=== PATIENT | female | born 1965 | race Caucasian/White ===

== ENCOUNTER → 2016-05-26 | Outpatient (CLI) | payer BC | LOC: RAD 15:55 | DX: M54.5 Low back pain (principal); M51.36 Other intervertebral disc degeneration, lumbar region; G95.89 Other specified diseases of spinal cord ==

== ENCOUNTER → 2018-11-26 | Outpatient (CLI) | payer BC | LOC: LAB 15:51 | DX: M54.9 Dorsalgia, unspecified (principal); R10.9 Unspecified abdominal pain ==

== ENCOUNTER → 2018-12-13 | Outpatient (CLI) | payer BC | LOC: RAD 14:27 | DX: E03.9 Hypothyroidism, unspecified (principal); E01.0 Iodine-deficiency related diffuse (endemic) goiter; E04.9 Nontoxic goiter, unspecified; G47.00 Insomnia, unspecified; J30.9 Allergic rhinitis, unspecified ==

== ENCOUNTER → 2020-06-29 | Outpatient (CLI) | payer OTHER ==
[2020-06-29 13:22] LABS: POTASSIUM 4.3 mmol/L (3.5-5.1)
[2020-06-29 13:23] LABS: ALBUMIN 4.2 g/dL (3.5-5.0)
[2020-06-29 13:24] LABS: CALCIUM 9.3 mg/dL (8.3-10.5)
[2020-06-29 13:25] LABS: TOTAL PROTEIN 7.7 g/dL (6.4-8.3)
[2020-06-29 13:27] LABS: TOTAL BILIRUBIN 0.8 mg/dL (0.2-1.2)
== END ==
LOC: LAB 12:57
PROVIDERS: Family Medicine
DX: Z13.1 Encounter for screening for diabetes mellitus (principal); E78.00 Pure hypercholesterolemia, unspecified; E03.9 Hypothyroidism, unspecified

== ENCOUNTER → 2024-06-03 | Outpatient (CLI) | payer OTHER ==
[2024-06-03 17:26] LABS: ALBUMIN 4.1 g/dL (3.5-5.0)
[2024-06-03 17:27] LABS: CALCIUM 9.5 mg/dL (8.3-10.5)
[2024-06-03 17:28] LABS: TOTAL PROTEIN 7.9 g/dL (6.4-8.3)
[2024-06-03 17:30] LABS: TOTAL BILIRUBIN 0.5 mg/dL (0.2-1.2)
== END ==
LOC: LAB 17:06
PROVIDERS: Family Medicine
DX: E03.4 Atrophy of thyroid (acquired) (principal)